=== PATIENT | female | born 1950 | race Caucasian/White ===

== ENCOUNTER 2023-05-06 13:09 | Emergency (ER) | payer OTHER ==
[~2023-05-06] VITALS: Ht 154.9 cm; Wt 50.0 kg
[2023-05-06] MEDS ORDERED: SODIUM CHLORIDE 0.9% 1,000 ML IV ONE (13:45)
[2023-05-06 14:32] LABS: Basophils # (auto) 0 10 ^3/uL (0-0.2); Basophils % (auto) 0.3 % (0.0-2.0); Eosinophils # (auto) 0.1 10 ^3/uL (0-0.8); Eosinophils % (auto) 0.8 % (0.0-7.0); Hematocrit 40.1 % (36.0-46.0); Hemoglobin 13.2 g/dL (12.2-16.2); Lymphocytes # (auto) 0.7 10 ^3/uL (0.4-5.4); Lymphocytes % (auto) 6.6 % (10.0-50.0); Mean Corpuscular Hemoglobin 33.2 pg (28.0-32.0); Mean Corpuscular Hgb Conc. 32.9 g/dL (32.0-36.0); Mean Corpuscular Volume 100.8 fL (80.0-100.0); Monocytes # (auto) 0.5 10 ^3/uL (0-1.3); Monocytes % (auto) 4.7 % (0.0-12.0); Neutrophils # (auto) 9.7 10 ^3/uL (1.6-8.6); Neutrophils % (auto) 87.6 % (37.0-80.0); Nucleated Red Blood Cells % 0.2 %; Red Blood Cells 3.98 10^6/uL (4.0-5.20); Red Cell Distribution Width 16.2 % (11.8-14.3)
[2023-05-06 14:51] LABS: Potassium 4.1 mmol/L (3.5-5.1)
[2023-05-06 14:59] LABS: INR 1.56 (0.9-1.15); Partial Thromboplastin Time 45.8 sec (24.6-33.4)
[2023-05-06 15:06] LABS: Albumin 2.6 g/dL (3.4-5.0); BUN/Creatinine Ratio 9.5 (10.0-20.0); Bilirubin, Total 0.6 mg/dL (0.2-1.0); Calcium 9.1 mg/dL (8.5-10.1); Total Protein 5.8 g/dL (6.4-8.2)
[2023-05-06 20:45] LABS: Basophils # (auto) 0 10 ^3/uL (0-0.2); Basophils % (auto) 0.2 % (0.0-2.0); Eosinophils # (auto) 0 10 ^3/uL (0-0.8); Eosinophils % (auto) 0.1 % (0.0-7.0); Hematocrit 33.4 % (36.0-46.0); Lymphocytes # (auto) 0.7 10 ^3/uL (0.4-5.4); Mean Corpuscular Hemoglobin 33.3 pg (28.0-32.0); Mean Corpuscular Hgb Conc. 32.5 g/dL (32.0-36.0); Mean Corpuscular Volume 102.7 fL (80.0-100.0); Monocytes # (auto) 0.4 10 ^3/uL (0-1.3)
[2023-05-06 20:47] LABS: Hemoglobin 10.8 g/dL (12.2-16.2); Lymphocytes % (auto) 5.4 % (10.0-50.0); Neutrophils # (auto) 11.2 10 ^3/uL (1.6-8.6); Neutrophils % (auto) 91.3 % (37.0-80.0); Red Blood Cells 3.25 10^6/uL (4.0-5.20); Red Cell Distribution Width 16.2 % (11.8-14.3); White Blood Cell 12.2 10^3/uL (4.4-10.8)
[2023-05-07] VITALS (13 sets, daily range): BP systolic 73–127; BP diastolic 32–61
[2023-05-07] MEDS ORDERED: SODIUM CHLORIDE 0.9% 1,000 ML IV ONE (00:15)
[2023-05-07 00:54] LABS: Basophils # (auto) 0 10 ^3/uL (0-0.2); Eosinophils # (auto) 0 10 ^3/uL (0-0.8); Hemoglobin 8.9 g/dL (12.2-16.2); Mean Corpuscular Hgb Conc. 33.5 g/dL (32.0-36.0); Monocytes # (auto) 0.5 10 ^3/uL (0-1.3); Nucleated Red Blood Cells % 0.1 %; Red Blood Cells 2.55 10^6/uL (4.0-5.20)
[2023-05-07 00:55] LABS: Basophils % (auto) 0.2 % (0.0-2.0); Hematocrit 26.4 % (36.0-46.0); Lymphocytes # (auto) 1.1 10 ^3/uL (0.4-5.4); Lymphocytes % (auto) 10.6 % (10.0-50.0); Mean Corpuscular Hemoglobin 34.8 pg (28.0-32.0); Mean Corpuscular Volume 103.7 fL (80.0-100.0); Monocytes % (auto) 5.1 % (0.0-12.0); Neutrophils # (auto) 8.6 10 ^3/uL (1.6-8.6); Neutrophils % (auto) 84.1 % (37.0-80.0); White Blood Cell 10.2 10^3/uL (4.4-10.8)
[2023-05-07] MEDS ORDERED: ALBUMIN 5% 250 ML IV ONE ×2 (01:54→02:00)
[2023-05-07] MEDS ORDERED: PANTOPRAZOLE 40 MG/10 ML VIAL INJ IV ONE (02:00)
[2023-05-07] MEDS ORDERED: cefTRIAXone 1GM/50ML D5W 50 ML IV ONE (02:00)
[2023-05-07] MEDS ORDERED: PANTOPRAZOLE 40mg/50ML NS AE 50 ML IV ONE (03:00)
[2023-05-07 05:21] LABS: Basophils # (auto) 0 10 ^3/uL (0-0.2); Basophils % (auto) 0.3 % (0.0-2.0); Eosinophils # (auto) 0 10 ^3/uL (0-0.8); Eosinophils % (auto) 0.4 % (0.0-7.0); Hematocrit 32.3 % (36.0-46.0); Hemoglobin 11.2 g/dL (12.2-16.2); Lymphocytes # (auto) 1.5 10 ^3/uL (0.4-5.4); Lymphocytes % (auto) 16.4 % (10.0-50.0); Mean Corpuscular Hgb Conc. 34.8 g/dL (32.0-36.0); Mean Corpuscular Volume 94.9 fL (80.0-100.0); Monocytes # (auto) 0.8 10 ^3/uL (0-1.3); Monocytes % (auto) 8.5 % (0.0-12.0); Neutrophils # (auto) 6.8 10 ^3/uL (1.6-8.6); Neutrophils % (auto) 74.4 % (37.0-80.0); Red Blood Cells 3.41 10^6/uL (4.0-5.20); Red Cell Distribution Width 17.6 % (11.8-14.3); White Blood Cell 9.2 10^3/uL (4.4-10.8)
== END 2023-05-07 09:44 | disposition short-term general hospital (02) ==
LOC: ER 13:09 → EDBD 13:09 → ER 05-07 09:44
DX: K92.2 Gastrointestinal hemorrhage, unspecified (principal); Z88.0 Allergy status to penicillin; Z88.8 Allergy status to other drugs, medicaments and biological substances; Z90.710 Acquired absence of both cervix and uterus
CPT/HCPCS: 36415; 36430; 74176; 76856; 80053; 85025; 85610; 85730; 86850; 86900; 86901; 86920; 87426; 93971; 96361; 96365; 96366; 96367; 96368; 96376; 99291; C9113; J0696; P9016; P9017; P9045

== ENCOUNTER 2025-09-09 22:59 | Emergency (ER) | payer OTHER ==
[~2025-09-09] VITALS: Ht 160 cm; Wt 45.0 kg
[2025-09-09] MEDS ORDERED: EPINEPHrine HCL 1 MG/10 ML SYRG IV ONE (23:00)
[2025-09-09 23:10] VITALS: TEMP 92.3
--- NOTE | 2025-09-09 23:14 | ED.PDOC ---
CPR-HPI HPI Comments 74-year-old female who came to the ER via EMS in cardiac arrest. Patient was seen lying unresponsive on the floor. Last seen normal at 10 a.m. Patient apneic and unresponsive. CPR initiated immediately. Patient intubated, fluids given, chest compression started. Was given seven rounds of epinephrine and ROSc was obtained. While en route, patient became pulseless again CPR continued, another 4 rounds of epinephrine, 1 round of NaHCO3 and calcium was given prior to arrival to the ER. Patient has colon cancer and COPD Chief Complaint: CPR Time Seen by MD: 23:12 Primary Care Provider: BARBRA Barrientos Notes: Tie Hacker Notes Allergies: Coded Allergies: Midazolam (Unverified Allergy, Unknown, 11/27/15) Uncoded Allergies: PENICILLIN (Allergy, Unknown, 11/27/15) Information Source: Emergency Med Personnel Mode of Arrival: EMS Timing: Hours Duration: Down time prior EMS: (unknown) Onset: Unknown Inital rhythm: Asystole Treatment: CPR, Intubation, IV, Epinephrine Response: No response Past Medical History PAST MEDICAL HISTORY: Cancer (Colon), COPD Surgical History: Unobtainable CHECKOUT OPERATOR History: Unobtainable Family History Family History: Unobtainable Family History (Other): RA and LUPUS Social History Smoker: Unobtainable Alcohol: Unobtainable Drugs: Unobtainable Lives In: Home Unable to Obtain due to: Medical Urgency, Intubated Physical Exam General Appearance: Cachectic, Severe Distress HEENT: Other (Fixed and dilated) Neck: Full Range of Motion, Non-Tender, Normal, Normal Inspection Respiratory: Other (No spontaneous respirations. coarse breath sounds bilaterally with bagging after patient was intubated.) Cardiovascular: Other (No palpable pulses. No auscultatory pulses) Breast Exam: Deferred Gastrointestinal: No Organomegaly, Soft Genitalia: Deferred Pelvic: Deferred Rectal: Deferred Extremities: Other (Cool, pale extremities) Musculoskeletal : Apperance: Normal Neurologic: Other (Unresponsive. Pupils fixed and dilated. No blink reflex . No gag reflex) Cerebellar Function: NOT DONE Reflexes: NOT DONE Skin: Other (Pale, ashen, poor turgor) Lymphatic: No Adenopathy Was a procedure done? Was a procedure done?: Yes Sedation Sedation?: No Intubation Indication: Respiratory Insufficiency, Altered Mental Status, Airway Protection Prep: Preoxygenation Pretreated with: Nothing Medicated with: Nothing Intubation Approach: Orotracheal Intubation size: cm (size 8, 24 at the tip) Informed consent obtained: No Risks/benefits/alt described: No Differential Dx CPR Differential Diagnosis: Cardiopulmonary arrest, Myocardial Infarction, Respiratory Failure X-Ray, Labs, Meds, VS Vital Signs Date Time Temp Pulse Resp B/P (MAP) Pulse Ox O2 Delivery O2 Flow Rate FiO2 09/09/25 23:10 92.3 92.3 Time of 1ST Reevaluation: 23:05 Reevaluation 1ST: Unchanged Patient Education/Counseling: Pt Unresponsive Family Education/Counseling: No Family Present SEPSIS Sepsis Screen Vital Signs Date Time Temp Pulse Resp B/P (MAP) Pulse Ox O2 Delivery O2 Flow Rate FiO2 09/09/25 23:10 92.3 92.3 Departure 1 Departure Time of Disposition: 23:08 Impression: Primary Impression: Cardiopulmonary arrest Additional Impression: COPD (chronic obstructive pulmonary disease) Disposition: 20 Condition: Other () Comments She arrived by ambulance. Unknown downtime. Found by family and lasting well was a full day prior. EMS gave 7 rounds of epinephrine and ACLS protocol. In asystole upon arrival. CPR was continued in the emergency department. Patient was intubated in the emergency department. ACLS measures continued. Patient was given 3 more rounds of epinephrine and bicarb with no response. The patient remained in asystole. There was no pulses. Patient was declared at 11:08 p.m. Critical Care Note Critical Care Time?: No Heart Score Heart Score: Heart Score Response (Comments) Value History N/A 0 EKG N/A 0 Age N/A 0 Risk Factors N/A 0 Troponin N/A 0 Total 0 Stability Stability form required: No I personally scribed for BROCK NARVAEZ MD ([email or web address]) on 09/09/25 at 23:14. Electronically submitted by Chalo Hernandez ([email or web address]). BROCK NARVAEZ MD Sep 09, 2025 23:14
--- NOTE | 2025-09-10 05:56 | RESUS ---
CODE BLUE ASSESSSMENT History of Events History of Events: Pt BIBA with CPR in progress via autopulse. Per EMS, pt was last seen well at approx 1000 by family and found at 2200 unresponsive on the floor in home, arrival to home was approx 2210 by EMS. Per EMS, got ROSC en route and then lost pulses again. IO initiated to right proximal tibia with EPI x7 rounds given. Pt also received 1 amp sodium bicarb and 1-10mL calcium. Pt intubated by EMS with 6.0. FSBS on scene [id number]. Initial Information Date: Sep 09, 2025 Time: 22:56 (Arrival time to ER) Location of Arrest: In Field Arrest Witnessed: No CPR started initial time: 22:10 CPR started by whom: EMS Last seen well: 1000 Pre-Hospital Care: ACLS Type of arrest: Cardiac, Respiratory, Adult, Unwitnessed Spontaneous Respirations: No Pulse Present: No Monitoring: ECG, Pulse Oximetry, Telemetry Crash Cart Opened and Supplies: Yes Airway Ventilation Breathing at Onset: Assisted Oxygen Delivery Method: Ambu-Bag Time of first Assisted Ventila: 22:56 (First ventilation by ER staff) Artificial Ventilation: Bag/Endo tube Intubation Size: 6.0 cuffed Intubated by: EMS air box tester Intubation Attempts: 1 Intubated orally: Yes Intubated Nasaly: No Comments: Per Ronnie, Resident, ETT became dislodged. Pt was extubated for re-intubation by Resident Rob with 1 attempt. Pt intubated in ER at 2300 with 8.0 ETT, 24 cm @ lip. Positive color change, +breath sounds. Cricoid pressure performed during intubation. Heavy tracheal suctioning after intubation d/t copious amount of fluids in tube. Circulation Circulation #1: Time: 22:56 Pulse Rate (adult): 0 Blood Pressure Systolic: 0 Blood Pressure Diastolic: 0 Temperature (Fahrenheit): 92.3 (F; rectal) Circulation #2: Time: 22:58 Pulse Rate (adult): 0 Blood Pressure Systolic: 0 Blood Pressure Diastolic: 0 Circulation Comment: Asystole Circulation #3: Time: 23:00 Pulse Rate (adult): 0 Blood Pressure Systolic: 0 Blood Pressure Diastolic: 0 Circulation Comment: Asystole Circulation #4: Time: 23:02 Pulse Rate (adult): 0 Blood Pressure Systolic: 0 Blood Pressure Diastolic: 0 Circulation Comment: Asystole Circulation #5: Time: 23:04 Pulse Rate (adult): 0 Blood Pressure Systolic: 0 Blood Pressure Diastolic: 0 Circulation Comment: Asystole Circulation #6: Time: 23:06 Pulse Rate (adult): 0 Blood Pressure Systolic: 0 Blood Pressure Diastolic: 0 Circulation Comment: Asystole Circulation #7: Time: 23:08 Pulse Rate (adult): 0 Blood Pressure Systolic: 0 Blood Pressure Diastolic: 0 Circulation Comment: Asystole; TOD Medications & Response Medications and Responses #1: Medication Time: 22:58 ADULT Medications Given ADULT: Epinephrine 1 mg Route of Administration: IO Heart Rate: 0 EKG Rhythm: Asystole Blood Pressure Systolic: 0 Blood Pressure Diastolic: 0 Respiratory Rate: 0 EKG Rhythm: Asystole Medications and Responses #2: Medication Time: 22:59 ADULT Medications Given ADULT: Sodium Bacarbinate 50 meq Route of Administration: IO Heart Rate: 0 EKG Rhythm: Asystole Blood Pressure Systolic: 0 Blood Pressure Diastolic: 0 Respiratory Rate: 0 EKG Rhythm: Asystole Medications and Responses #3: Medication Time: 23:02 ADULT Medications Given ADULT: Epinephrine 1 mg Route of Administration: IO Heart Rate: 0 EKG Rhythm: Asystole Blood Pressure Systolic: 0 Blood Pressure Diastolic: 0 Respiratory Rate: 0 EKG Rhythm: Asystole Medications and Responses #4: Medication Time: 23:06 ADULT Medications Given ADULT: Epinephrine 1 mg Route of Administration: IO Heart Rate: 0 EKG Rhythm: Asystole Blood Pressure Systolic: 0 Blood Pressure Diastolic: 0 Respiratory Rate: 0 EKG Rhythm: Asystole Nurses Notes [place] Coma Scale Eye Opening: None (1) [place] Coma Scale Verbal: None (1) [place] Coma Scale Motor: None (1) [place] Total: 3 Pupil Reaction: Non Reactive Bedside Blood Glucose: 125 Time Code Ended Time Code Ended: 23:08 Post Arrest Status: Outcome of code: Unsuccessful Patient pronounced by: Dr Ayala Time patient pronounced: 23:08 Family notified: Yes Code Team Present: Dr Ayala - HIRA FINN; Ronnie, Resident; Rob, Resident; Hola Castelan RN - ER Charge; Elisha Aldrich RN - Java [email or web address] Application Developer; Shivani Schulz RN; Carrol Aldrich RN; Izabela Mcmanus, RT; Cyril Lacy, ERT; Lianna Hwang, ERT; Kayla Mcmanus, ERT Elisha Shrestha Sep 10, 2025 05:56
== END 2025-09-09 23:08 ==
LOC: ER 22:59 → EDBD 22:59 → ER 23:08
DX: I46.9 Cardiac arrest, cause unspecified (principal); J44.9 Chronic obstructive pulmonary disease, unspecified; F17.200 Nicotine dependence, unspecified, uncomplicated; C18.9 Malignant neoplasm of colon, unspecified; Z88.0 Allergy status to penicillin
CPT/HCPCS: 31500; 92950; 99285; J0169